=== PATIENT | male | born 2005 | race Caucasian/White ===

== ENCOUNTER 2024-06-21 09:58 | Emergency (ER) | payer MEDICAID, SELFPAY ==
[2024-06-21 10:30] LABS: Bilirubin Negative (Negative); Blood, Urine Negative (Negative); Clarity Slightly Cloudy (Clear); Glucose, Urine (Dipstick) Negative (Negative); Ketone, Urine Negative (Negative); Leukocyte Small (Negative); Nitrite Negative (Negative); Protein, Urine (Dipstick) Negative (Neg-Trace); Specific Gravity, Urine 1.025 (1.005-1.030); Urobilinogen 0.2 mg/dL (Less than 2); pH, Urine 7.5 (5.0-9.0)
[2024-06-21 10:39] LABS: Bacteria/HPF 1+ HPF (None Seen); RBC/HPF 0-3 HPF (0-3); Squamous Epithelial 0-3 HPF (0-3); WBC/HPF Greater than 50 HPF (0-3)
[2024-06-21] MEDS ORDERED: Lidocaine 1% PF 5 ML VIAL ONE (11:18)
[2024-06-21] MEDS ORDERED: cefTRIAXone (ROCEPHIN) 500 MG VIAL ONE (11:18)
[2024-06-21] MEDS ORDERED: metroNIDAZOLE 250 MG TAB ONE (11:18)
[2024-06-21] MEDS ORDERED: Azithromycin 250 MG TAB ONE (11:18)
[2024-06-21 22:31] LABS: Chlam.trachomatis by PCR,Urine Not Detected (NotDetected); GC N.gonorrhoeae PCR,UrineVOID DETECTED (NotDetected)
== END 2024-06-21 12:05 | disposition home or self-care (01) ==
LOC: MADERS 09:58
DX: A64 Unspecified sexually transmitted disease (principal); F17.210 Nicotine dependence, cigarettes, uncomplicated; F17.290 Nicotine dependence, other tobacco product, uncomplicated
CPT/HCPCS: 81001; 87491; 87591; 96372; 99283; J0696

== ENCOUNTER 2024-10-20 13:56 | Emergency (ER) | payer SELFPAY ==
[2024-10-20 14:22] LABS: #Basophils 0.1 thou/uL (0.0-0.2); #Eosinophils 0.1 thou/uL (0.0-0.7); #Lymphocytes 1.6 thou/uL (1.20-3.40); #Monocytes 0.5 thou/uL (0.11-0.59); #Neutrophils 2.2 thou/uL (1.40-6.50); %Basophils 2.7 % (0.0-1.0); %Eosinophils 1.5 % (0.0-10.0); %Lymphocytes 34.4 % (28.0-48.0); %Monocytes 11.9 % (0.0-4.0); %Neutrophils 49.6 % (31.0-61.0); Hematocrit 48.3 % (42.0-52.0); Hemoglobin 15.2 g/dL (14.0-18.0); Mean Corpuscular HGB CONC 31.5 g/dL (32.0-36.0); Mean Corpuscular Hemoglobin 28.6 pg (25.0-35.0); Mean Corpuscular Volume 90.9 fl (78.0-98.0); Mean Platelet Volume 8.9 fL (7.4-10.4); Platelet Count 246 10x3/uL (130-400); RBC Distribution Width 12.2 % (11.5-14.5); Red Blood Cell (RBC) Count 5.32 mill/uL (4.00-5.20); White Blood Cell (WBC) Count 4.5 10x3/uL (4.8-10.8)
[2024-10-20 14:41] LABS: ALT (SGPT) 12 U/L (Less than 45); AST (SGOT) 25 U/L (11-34); Albumin 4.6 g/dL (3.1-4.5); Alkaline Phosphatase 61 U/L (50-130); Anion Gap 15 mmol/L (10-20); BUN (Urea Nitrogen) 10 mg/dL (8.9-20.6); Bilirubin, Total 0.9 mg/dL (0.3-1.2); Calc. Creatinine Clearance 0 mL/min (70-130); Calcium 9.4 mg/dL (7.8-10.44); Carbon Dioxide 24 mmol/L (22-29); Chloride 105 mmol/L (98-107); Estimated GFR 108; Globulin 3.5 g/dL (2.4-3.5); Glucose 97 mg/dL (70-105); Lipase 7 U/L (8-78); Protein, Total 8.1 g/dL (6.0-8.3); Sodium 140 mmol/L (136-145)
[2024-10-20 14:42] LABS: Troponin I Less than 0.010 ng/mL (< 0.028)
[2024-10-20] MEDS ORDERED: Aspirin Chewable 81 MG TAB ONE ×2 (14:44→15:00)
[2024-10-20] MEDS ORDERED: Nitroglycerin 0.4 MG TAB 1 EACH ONE (14:44)
== END 2024-10-20 15:46 | disposition home or self-care (01) ==
LOC: MADERS 13:56
DX: I30.9 Acute pericarditis, unspecified (principal); F17.210 Nicotine dependence, cigarettes, uncomplicated; F17.290 Nicotine dependence, other tobacco product, uncomplicated
CPT/HCPCS: 36415; 71046; 80053; 83690; 84484; 85025; 93005

== ENCOUNTER 2025-06-12 06:20 | Emergency (ER) | payer SELFPAY ==
[2025-06-12 06:49] LABS: Glucose, Urine (Dipstick) 100 mg/dL (Negative); Leukocyte Large (Negative); Protein, Urine (Dipstick) 30 mg/dL (Neg-Trace); Specific Gravity, Urine 1.020 (1.005-1.030)
[2025-06-12 06:50] LABS: Bacteria/HPF 2+ HPF (None Seen); CAUTI Indications for Culture Dysuria,urgency,freq; RBC/HPF 0-3 HPF (0-3); WBC/HPF Greater than 50 HPF (0-3)
[2025-06-12 06:52] LABS: Urine Culture Reflex Yes Yes
[2025-06-12] MEDS ORDERED: cefTRIAXone (ROCEPHIN) 500 MG VIAL ONE (07:57)
[2025-06-12 23:45] LABS: Chlam.trachomatis by PCR,Urine Not Detected (NotDetected); GC N.gonorrhoeae PCR,UrineVOID DETECTED (NotDetected)
== END 2025-06-12 08:10 | disposition home or self-care (01) ==
LOC: MADERS 06:20
DX: N39.0 Urinary tract infection, site not specified (principal); F17.290 Nicotine dependence, other tobacco product, uncomplicated
CPT/HCPCS: 81001; 87086; 87491; 87591; 96372; 99284; J0696